=== PATIENT | female | born 1970 | race Caucasian/White ===

== ENCOUNTER 2021-04-17 14:45 | Outpatient (REF) | payer OTHER, SELFPAY ==
--- NOTE | 2021-04-17 13:30 | PAPFT_PTH ---
PATIENT: LOUIS JACOB LOC: [facility] U#:[id number] AGE/SX: 51/F ROOM: RE04/17/[address]: MIGUEL ANGEL Elliott : 1970 BED: DIS: 04/17/2021 SPEC #: [id number] RECD: 04/17/21 18:31 STATUS: JHONNY REQ #: [id number] VON: 04/17/21 13:[address]: Jossie Jerez DEPT: [facility] Cytology RECD BY: Chapis Willard Tissues: 1 - CX/ENDOCX FOR PAP SMEARS Procedures: PAP THIN PREP/[facility] Screening HPV DNA PROBE Comments: [id number]
== END 2021-04-17 14:46 | disposition home or self-care (01) ==
LOC: LBN 14:45
PROVIDERS: PCP Nurse Practitioner Family; Visit Provider Nurse Practitioner Family
DX: Z12.4 Encounter for screening for malignant neoplasm of cervix (principal); Z11.51 Encounter for screening for human papillomavirus (HPV)
CPT/HCPCS: 88142; 87624